=== PATIENT | female | born 1950 | race Caucasian/White ===

== ENCOUNTER 2021-02-23 22:24 | Observation (INO) | payer MEDICARE, OTHER ==
[~2021-02-23] VITALS: Ht 162.6 cm; Wt 52.2 kg
[2021-02-23 22:43] VITALS: BP 172/81
[2021-02-23] MEDS ORDERED: AMOXICILLIN 50500 MG PO (22:49)
[2021-02-23 23:06] LABS: ABSOLUTE LYMPHOCYTES 1.4 thou/uL (0.8-5.3); ABSOLUTE MONOCYTES 0.3 thou/uL (0.0-1.2); ABSOLUTE NEUTROPHILS 7.4 thou/uL (1.6-8.1); BASOPHILS 0.4 %; EOSINOPHILS 0.2 %; HEMATOCRIT 39.9 % (37.0-47.0); HEMOGLOBIN 13.8 gm/dL (12.0-15.0); MCH 31.4 pg (26.0-34.0); MCHC 34.7 g/dL (28.0-37.0); MCV 90.5 fL (80.0-100.0); MONOCYTES 2.8 %; NUCLEATED RBCS 0 /100WBC; PLATELET COUNT* 274 thou/uL (150-400); POLYS 81.6 %; RDW-CV 13.1 % (10.5-14.5); WBC 9.1 thou/uL (4.0-11.0)
[2021-02-23 23:18] LABS: CALCIUM 8.8 mg/dL (8.5-10.1); POTASSIUM 3.7 mmol/L (3.5-5.1)
[2021-02-24 00:35] LABS: URINE BILIRUBIN NEGATIVE (Negative); URINE BLOOD NEGATIVE (Negative); URINE CLARITY CLEAR; URINE COLOR YELLOW; URINE GLUCOSE-RANDOM NEGATIVE (Negative); URINE KETONES 2+ (Negative); URINE LEUKOCYTES-REFLEX NEGATIVE (Negative); URINE NITRITE-REFLEX NEGATIVE (Negative); URINE PROTEIN NEGATIVE (Negative); URINE UROBILINOGEN 0.2 E.U./dl (0.2-1.0)
[2021-02-24 04:46] VITALS: BP 135/73
[2021-02-24 08:03] LABS: CALCIUM 8.6 mg/dL (8.5-10.1); CREATININE 0.8 mg/dL (0.6-1.3); POTASSIUM 4.3 mmol/L (3.5-5.1)
[2021-02-24 08:46] VITALS: BP 131/68
[2021-02-24] MEDS ORDERED: CLEOCIN HCL300 MG PO (11:29)
[2021-02-24] MEDS ORDERED: BENADRYL25 MG PO (11:29)
--- NOTE | 2021-02-24 12:36 | NUR ---
AWAITING FOR DISCHARGE ORDER TO DC HOME
[2021-02-24 15:43] VITALS: BP 131/68
[2021-02-24 15:49] VITALS: BP 131/68
== END 2021-02-24 13:31 | disposition home or self-care (01) ==
LOC: M.ERS 22:24 → M.TBA-ER 23:56
PROVIDERS: Emergency Medicine; ADMIT Family Medicine; ATTEND Family Medicine
DX: E87.1 Hypo-osmolality and hyponatremia (principal); R11.2 Nausea with vomiting, unspecified; T78.40XA Allergy, unspecified, initial encounter; K04.7 Periapical abscess without sinus; Z79.899 Other long term (current) drug therapy; X58.XXXA Exposure to other specified factors, initial encounter